=== PATIENT | male | born 1935 | race Hispanic/Latino ===

== ENCOUNTER → 2018-03-09 | Outpatient (CLI) | payer OTHER ==
[~2018-03-09] MED LIST: AEC81 PO; BIMA12.5OS OU; CETI10TA57 PO; COLC0.6T70 PO; DILT240C3 PO; DORZ10DR9 OU; INSU100V12 SQ; LINA5TAB PO; LOVA20TA3 PO; OLME1TAB40 PO; PANT40TA25 PO; PREG75 PO
== END | disposition home or self-care (01) ==
LOC: OIH 16:22
PROVIDERS: ATTEND Family Medicine
DX: M19.012 Primary osteoarthritis, left shoulder (principal); M75.32 Calcific tendinitis of left shoulder
CPT/HCPCS: 73030

== ENCOUNTER 2020-05-13 15:19 | Inpatient (IN) | payer OTHER ==
[~2020-05-13] VITALS: Ht 180.3 cm; Wt 89.4 kg
[~2020-05-13 15:19] MED LIST changes: -COLC0.6T70 PO; +COLC0.6T73 PO; -DILT240C3 PO; +DILT240C97 PO; +OLME-7 PO; -OLME1TAB40 PO; -PANT40TA25 PO; +PANT40TA54 PO
[2020-05-13 16:06] LABS: BASOPHILS % (AUTO) 0.3 % (0.0-5.0); HEMATOCRIT 26.9 % (42-54); LYMPHOCYTES % (AUTO) 21.9 % (21.0-51.0); MEAN CORPUSCULAR HEMOGLOBIN 30.1 pg (27.0-33.0); MEAN CORPUSCULAR HGB CONC 33.5 g/dL (32.0-36.0); MONOCYTES % (AUTO) 46.5 % (3.0-13.0); NEUTROPHILS % (AUTO) 27.5 % (40.0-77.0); PLATELET COUNT (AUTO) 110 K/uL (130-400); RED BLOOD CELL COUNT(AUTO) 2.99 MIL/uL (4.50-6.20); RED CELL DISTRIBUTION WIDTH 12.8 % (11.0-15.5); WHITE BLOOD COUNT (AUTO) 3.4 K/uL (4.8-10.8)
[2020-05-13 16:15] LABS: INR 1.12 (0.85-1.15); PROTHROMBIN TIME 11.9 SEC (9.6-11.6)
[2020-05-13 16:17] LABS: PARTIAL THROMBOPLASTIN TIME 34.4 SEC (26.3-35.5)
[2020-05-13 16:23] LABS: CREATININE 3.2 mg/dL (0.5-1.5); POTASSIUM 5.5 mmol/L (3.5-5.1)
[2020-05-13 16:37] LABS: ALBUMIN 2.7 g/dL (3.5-5.0); BILIRUBIN,TOTAL 0.4 mg/dL (0.2-1.0); TOTAL PROTEIN, SERUM 5.7 g/dL (6.0-8.3)
[2020-05-13 16:56] LABS: CRP QUANTITATIVE 51.7 mg/L (0.00-9.0)
[2020-05-13] MEDS ORDERED: 0.9%NACL 1000ML 1,000 ML IV ONE (17:06)
[2020-05-13] MEDS ORDERED: ZOSYN 3.375GM+NS 50ML 50 ML IV ONE (17:19)
[2020-05-13 17:24] LABS: ABG BASE EXCESS -5.5 mmol/L (-2.0-3.0); ABG HCO3 17.4 mmol/L (21.0-28.0); ABG PCO2 28 mmHg (35-48)
[2020-05-13] MEDS ORDERED: ENOXAPARIN SODIUM 40 MG/0.4 ML SYRINGE SQ ONE (17:36)
[2020-05-13] MEDS ORDERED: ENOXAPARIN SODIUM 100 MG/1 ML SQ ONE (17:39)
[2020-05-13] MEDS: CEFTRIAXONE 1G VIAL IVP SCH (18:45)
[2020-05-13] MEDS ORDERED: LACTATED RINGERS 1000ML 1,000 ML IV SCH (18:45)
[2020-05-13] MEDS: AZITHROMYCIN 500MG+NS 250ML 250 ML IV SCH (18:45)
[2020-05-13] MEDS ORDERED: DiphenhydrAMINE HCL 50 MG/ML VIAL IV PRN (18:45)
[2020-05-13] MEDS ORDERED: ACETAMINOPHEN 650 MG SUPPOSITORY RC PRN (18:45)
[2020-05-13] MEDS ORDERED: ERGOCALCIFEROL (VITAMIN D2) 50,000 UNIT CAPSULE PO ONE (18:45)
[2020-05-13] MEDS ORDERED: DEXAMETHASONE SOD PHOSPHATE 4 MG/ML 1ML VIAL IVP SCH (18:45)
[2020-05-13] MEDS ORDERED: NOREPINEPHRIN 4MG/NS 250ML 250 ML IV ONE (18:51)
[2020-05-13] MEDS ORDERED: ERGOCALCIFEROL (VITAMIN D2) 50,000 UNIT CAPSULE ONE (21:03)
[2020-05-14 05:45] LABS: BASOPHILS % (AUTO) 0.5 % (0.0-5.0); HEMATOCRIT 26.9 % (42-54); LYMPHOCYTES % (AUTO) 27.7 % (21.0-51.0); MEAN CORPUSCULAR HEMOGLOBIN 29.7 pg (27.0-33.0); MEAN CORPUSCULAR HGB CONC 32.7 g/dL (32.0-36.0); MEAN CORPUSCULAR VOLUME 90.9 fL (79-99); MONOCYTES % (AUTO) 14.1 % (3.0-13.0); NEUTROPHILS % (AUTO) 47.4 % (40.0-77.0); PLATELET COUNT (AUTO) 119 K/uL (130-400); RED BLOOD CELL COUNT(AUTO) 2.96 MIL/uL (4.50-6.20); WHITE BLOOD COUNT (AUTO) 1.8 K/uL (4.8-10.8)
[2020-05-14 06:24] LABS: ALBUMIN 2.6 g/dL (3.5-5.0); BILIRUBIN,TOTAL 0.5 mg/dL (0.2-1.0); CRP QUANTITATIVE 77.9 mg/L (0.00-9.0); POTASSIUM 4.6 mmol/L (3.5-5.1); TOTAL PROTEIN, SERUM 6.3 g/dL (6.0-8.3)
[2020-05-14] MEDS: CEFTRIAXONE 1G VIAL IVP SCH ×2 (06:45→18:45)
[2020-05-14] MEDS ORDERED: ASCORBIC ACID 500 MG TAB ONE (08:22)
[2020-05-14] MEDS ORDERED: DEXAMETHASONE SOD PHOSPHATE 10MG/ML 1ML VIAL ONE (08:22)
[2020-05-14] MEDS ORDERED: AZITHROMYCIN 500MG+NS 250ML 250 ML IV ONE (08:23)
[2020-05-14] MEDS ORDERED: ZINC SULFATE 220 CAPSULE ONE ×2 (08:23→08:43)
[2020-05-14] MEDS ORDERED: ENOXAPARIN SODIUM 40 MG/0.4 ML SYRINGE SQ ONE (08:23)
[2020-05-14] MEDS ORDERED: CEFTRIAXONE 1G VIAL ONE (08:23)
[2020-05-14] MEDS: ASCORBIC ACID 500 MG TAB PO SCH (09:00)
[2020-05-14] MEDS ORDERED: ENOXAPARIN SODIUM 40 MG/0.4 ML SYRINGE SQ SCH (09:00)
[2020-05-14] MEDS: ZINC SULFATE 220 CAPSULE PO SCH (09:00)
[2020-05-14] MEDS: FAMOTIDINE 20MG VIAL IV SCH (09:00)
[2020-05-14] MEDS: 0.9%NACL 1000ML 1,000 ML IV SCH (15:15)
[2020-05-14 15:56] LABS: ABG BASE EXCESS -7.9 mmol/L (-2.0-3.0); ABG HCO3 15.6 mmol/L (21.0-28.0); ABG OXYGEN SATURATION 98.2 % (95.0-99.0); ABG PCO2 28 mmHg (35-48)
[2020-05-14 16:56] LABS: APPEARANCE,URINE Clear (CLEAR); BILIRUBIN,URINE Negative (NEGATIVE); COLOR,URINE Yellow (YELLOW); GLUCOSE, URINE (UA) Negative (NEGATIVE); KETONES,URINE Negative (NEGATIVE); LEUKOCYTE ESTERASE ,URINE Negative (NEGATIVE); NITRATE,URINE Negative (NEGATIVE); OCCULT BLOOD,URINE Moderate (NEGATIVE); PROTEIN,URINE POS 1+ mg/dL (NEGATIVE); UROBILINOGEN,URINE 0.2 mg/dL (0.2-1.0)
[2020-05-14 17:16] LABS: BACTERIA,URINE Few /HPF (None Seen); MUCUS,URINE Rare LPF (None Seen); SQUAMOUS EPITHELIAL CELL,UR Rare /HPF (0-2); WBC,URINE 0-1 /HPF (0-1)
[2020-05-14 17:17] LABS: COARSE GRANULAR CASTS,URINE 0-2 /LPF (None Seen)
[2020-05-14] MEDS: AZITHROMYCIN 500MG+NS 250ML 250 ML IV SCH (18:45)
[2020-05-14] MEDS ORDERED: ASPI-1146 PO (20:36)
[2020-05-15] MEDS ORDERED: ACETAMINOPHEN 325 MG TAB ONE (00:19)
[2020-05-15 04:31] LABS: ABG BASE EXCESS -6.5 mmol/L (-2.0-3.0); ABG HCO3 17.6 mmol/L (21.0-28.0); ABG OXYGEN SATURATION 97.1 % (95.0-99.0); ABG PCO2 31 mmHg (35-48)
[2020-05-15 05:43] LABS: BASOPHILS % (AUTO) 0.5 % (0.0-5.0); HEMATOCRIT 26.9 % (42-54); LYMPHOCYTES % (AUTO) 10.8 % (21.0-51.0); MEAN CORPUSCULAR HEMOGLOBIN 30.3 pg (27.0-33.0); MEAN CORPUSCULAR HGB CONC 33.8 g/dL (32.0-36.0); MEAN CORPUSCULAR VOLUME 89.7 fL (79-99); MONOCYTES % (AUTO) 16.7 % (3.0-13.0); NEUTROPHILS % (AUTO) 64.4 % (40.0-77.0); PLATELET COUNT (AUTO) 134 K/uL (130-400); RED CELL DISTRIBUTION WIDTH 12.9 % (11.0-15.5); WHITE BLOOD COUNT (AUTO) 6.2 K/uL (4.8-10.8)
[2020-05-15 06:31] LABS: ALBUMIN 2.5 g/dL (3.5-5.0); BILIRUBIN,TOTAL 0.3 mg/dL (0.2-1.0); CREATININE 2.4 mg/dL (0.5-1.5); CRP QUANTITATIVE 50.9 mg/L (0.00-9.0); MAGNESIUM 2.7 mg/dL (1.80-2.40); PHOSPHORUS 4.7 mg/dL (2.5-4.9); POTASSIUM 4.4 mmol/L (3.5-5.1); TOTAL PROTEIN, SERUM 6.1 g/dL (6.0-8.3)
[2020-05-15 06:34] LABS: % IRON SATURATION 7.2 % (30-44)
[2020-05-15] MEDS: CEFTRIAXONE 1G VIAL IVP SCH ×2 (06:45→18:45)
[2020-05-15] MEDS ORDERED: ZINC SULFATE 220 CAPSULE ONE (07:03)
[2020-05-15] MEDS ORDERED: ASCORBIC ACID 500 MG TAB ONE (07:03)
[2020-05-15] MEDS ORDERED: CEFTRIAXONE 1G VIAL ONE (07:03)
[2020-05-15] MEDS ORDERED: ENOXAPARIN SODIUM 40 MG/0.4 ML SYRINGE SQ ONE (07:03)
[2020-05-15] MEDS ORDERED: FAMOTIDINE 20MG VIAL IV ONE (07:04)
[2020-05-15] MEDS: ZINC SULFATE 220 CAPSULE PO SCH (09:00)
[2020-05-15] MEDS: FAMOTIDINE 20MG VIAL IV SCH (09:00)
[2020-05-15] MEDS: ENOXAPARIN SODIUM 30 MG/0.3 ML SQ SCH (09:00)
[2020-05-15] MEDS: ASCORBIC ACID 500 MG TAB PO SCH (09:00)
[2020-05-15 09:37] LABS: TROPONIN I 0.12 ng/mL (0.00-0.06)
[2020-05-15] MEDS: 0.9%NACL 1000ML 1,000 ML IV SCH (11:15)
[2020-05-15] MEDS ORDERED: IRON SUCROSE COMPLEX 100 MG in 0.9%NACL 50ML 50 ML IV SCH (12:15)
[2020-05-15] MEDS ORDERED: EPOETIN ALFA-EPBX (ESRD) 10,000 UNIT/ML VIAL SQ SCH (12:15)
[2020-05-15] MEDS: IRON SUCROSE COMPLEX 100 MG in 0.9%NACL 50ML 50 ML IV SCH (12:30)
[2020-05-15] MEDS ORDERED: COMPOUND IV MISC 1 EACH IVSOLN MISC PRN (12:30)
[2020-05-15] MEDS ORDERED: DEXAMETHASONE 4 MG TAB PO SCH (18:15)
[2020-05-15] MEDS ORDERED: AZITHROMYCIN 500MG+NS 250ML 250 ML IV ONE (18:25)
[2020-05-15] MEDS ORDERED: DEXAMETHASONE 4 MG TAB ONE (18:25)
[2020-05-15] MEDS: AZITHROMYCIN 500MG+NS 250ML 250 ML IV SCH (18:45)
[2020-05-15 19:00] LABS: BASOPHILS % (AUTO) 0.3 % (0.0-5.0); HEMATOCRIT 27.2 % (42-54); LYMPHOCYTES % (AUTO) 4.9 % (21.0-51.0); MEAN CORPUSCULAR HEMOGLOBIN 30.5 pg (27.0-33.0); MEAN CORPUSCULAR HGB CONC 33.5 g/dL (32.0-36.0); MEAN CORPUSCULAR VOLUME 91.3 fL (79-99); MONOCYTES % (AUTO) 20.6 % (3.0-13.0); NEUTROPHILS % (AUTO) 67.3 % (40.0-77.0); NUCLEATED RED BLOOD CELLS 0.3 % (0.0-0.19); PLATELET COUNT (AUTO) 195 K/uL (130-400); RED BLOOD CELL COUNT(AUTO) 2.98 MIL/uL (4.50-6.20); RED CELL DISTRIBUTION WIDTH 13.2 % (11.0-15.5); WHITE BLOOD COUNT (AUTO) 11.5 K/uL (4.8-10.8)
[2020-05-15 21:30] VITALS: BP 122/60
[2020-05-16] VITALS (7 sets, daily range): BP systolic 107–141; BP diastolic 57–80
[2020-05-16 05:22] LABS: BASOPHILS % (AUTO) 0.3 % (0.0-5.0); HEMATOCRIT 26.4 % (42-54); LYMPHOCYTES % (AUTO) 5.1 % (21.0-51.0); MEAN CORPUSCULAR HEMOGLOBIN 29.2 pg (27.0-33.0); MEAN CORPUSCULAR HGB CONC 32.6 g/dL (32.0-36.0); MEAN CORPUSCULAR VOLUME 89.5 fL (79-99); MONOCYTES % (AUTO) 12.6 % (3.0-13.0); NEUTROPHILS % (AUTO) 72.5 % (40.0-77.0); NUCLEATED RED BLOOD CELLS 0.4 % (0.0-0.19); PLATELET COUNT (AUTO) 155 K/uL (130-400); RED BLOOD CELL COUNT(AUTO) 2.95 MIL/uL (4.50-6.20); RED CELL DISTRIBUTION WIDTH 13.2 % (11.0-15.5); WHITE BLOOD COUNT (AUTO) 11.9 K/uL (4.8-10.8)
[2020-05-16] MEDS: CEFTRIAXONE 1G VIAL IVP SCH ×2 (05:47→21:10)
[2020-05-16 05:49] LABS: ALBUMIN 2.6 g/dL (3.5-5.0); BILIRUBIN,TOTAL 0.3 mg/dL (0.2-1.0); CREATININE 2.2 mg/dL (0.5-1.5); CRP QUANTITATIVE 36.6 mg/L (0.00-9.0); POTASSIUM 4.8 mmol/L (3.5-5.1)
[2020-05-16] MEDS: 0.9%NACL 1000ML 1,000 ML IV SCH (10:07)
[2020-05-16] MEDS: ZINC SULFATE 220 CAPSULE PO SCH (10:07)
[2020-05-16] MEDS: FAMOTIDINE 20MG VIAL IV SCH (10:07)
[2020-05-16] MEDS: ASCORBIC ACID 500 MG TAB PO SCH (10:08)
[2020-05-16] MEDS: ENOXAPARIN SODIUM 30 MG/0.3 ML SQ SCH (10:10)
[2020-05-16] MEDS: IRON SUCROSE COMPLEX 100 MG in 0.9%NACL 50ML 50 ML IV SCH (10:11)
[2020-05-16] MEDS: AZITHROMYCIN 500MG+NS 250ML 250 ML IV SCH (21:10)
[2020-05-17 02:29] LABS: HEMATOCRIT 27.9 % (42-54); MEAN CORPUSCULAR HGB CONC 33.3 g/dL (32.0-36.0); NUCLEATED RED BLOOD CELLS 0.9 % (0.0-0.19); RED BLOOD CELL COUNT(AUTO) 3.1 MIL/uL (4.50-6.20); RED CELL DISTRIBUTION WIDTH 13.5 % (11.0-15.5)
[2020-05-17 02:40] LABS: CREATININE 2.2 mg/dL (0.5-1.5); POTASSIUM 4.9 mmol/L (3.5-5.1)
[2020-05-17] MEDS: 0.9%NACL 1000ML 1,000 ML IV SCH ×2 (03:03→23:15)
[2020-05-17 03:39] VITALS: BP 123/72
[2020-05-17] MEDS ORDERED: MEROPENEM 1 GM VIAL ONE (03:42)
[2020-05-17] MEDS: MEROPENEM 1 GM VIAL IVP SCH ×2 (05:51→17:53)
[2020-05-17] MEDS: ENOXAPARIN SODIUM 30 MG/0.3 ML SQ SCH (08:25)
[2020-05-17] MEDS: ZINC SULFATE 220 CAPSULE PO SCH (08:25)
[2020-05-17] MEDS: DILTIAZEM 120MG SR CAP PO SCH (08:25)
[2020-05-17] MEDS: ASCORBIC ACID 500 MG TAB PO SCH (08:26)
[2020-05-17] MEDS: FAMOTIDINE 20MG VIAL IV SCH (08:26)
[2020-05-17 08:56] VITALS: BP 123/67
[2020-05-17] MEDS: IRON SUCROSE COMPLEX 100 MG in 0.9%NACL 50ML 50 ML IV SCH (09:00)
[2020-05-17 12:00] VITALS: BP 107/60
[2020-05-17] MEDS ORDERED: VANCOMYCIN PROTOCOL PER PHARMACY IV SCH (14:30)
[2020-05-17] MEDS ORDERED: VANCOMYCIN 1G 1.75 GM in 0.9% NACL 250ML 250 ML IV ONE (14:30)
[2020-05-17] MEDS ORDERED: COMPOUND IV REFRIGERATED 1 EACH IVSOLN MISC PRN (14:30)
[2020-05-17] MEDS: DEXAMETHASONE 4 MG TAB PO SCH (14:54)
[2020-05-17 16:00] VITALS: BP 122/73
[2020-05-17] MEDS: AZITHROMYCIN 500MG+NS 250ML 250 ML IV SCH (17:52)
[2020-05-17 20:00] VITALS: BP 149/62
[2020-05-17] MEDS: SODIUM BICARBONATE 650 MG TAB PO SCH (21:00)
[2020-05-17] MEDS: ENOXAPARIN SODIUM 40 MG/0.4 ML SYRINGE SQ SCH (23:11)
[2020-05-18] VITALS (7 sets, daily range): BP systolic 115–138; BP diastolic 53–82
[2020-05-18 04:49] LABS: HEMATOCRIT 29.2 % (42-54); MEAN CORPUSCULAR HEMOGLOBIN 29.6 pg (27.0-33.0); MEAN CORPUSCULAR HGB CONC 31.8 g/dL (32.0-36.0); NUCLEATED RED BLOOD CELLS 1.4 % (0.0-0.19); RED BLOOD CELL COUNT(AUTO) 3.14 MIL/uL (4.50-6.20); RED CELL DISTRIBUTION WIDTH 14.1 % (11.0-15.5); WHITE BLOOD COUNT (AUTO) 16.7 K/uL (4.8-10.8)
[2020-05-18 05:03] LABS: CREATININE 2.8 mg/dL (0.5-1.5); POTASSIUM 5.1 mmol/L (3.5-5.1)
[2020-05-18] MEDS: MEROPENEM 1 GM VIAL IVP SCH ×2 (06:03→18:32)
[2020-05-18] MEDS: 0.9%NACL 1000ML 1,000 ML IV SCH ×2 (06:03→13:27)
[2020-05-18 06:41] LABS: ABG BASE EXCESS -9.1 mmol/L (-2.0-3.0); ABG HCO3 13.6 mmol/L (21.0-28.0); ABG OXYGEN SATURATION 96.7 % (95.0-99.0); ABG PCO2 23 mmHg (35-48)
[2020-05-18] MEDS ORDERED: PHARMACY COMMUNICATION MISC SCH (07:00)
[2020-05-18] MEDS ORDERED: SODIUM BICARB 50MEQ 50ML VIAL IV SCH (07:15)
[2020-05-18] MEDS: DILTIAZEM 120MG SR CAP PO SCH ×2 (07:30→16:31)
[2020-05-18] MEDS: ZINC SULFATE 220 CAPSULE PO SCH (09:00)
[2020-05-18] MEDS: SODIUM BICARBONATE 650 MG TAB PO SCH ×2 (09:00→22:01)
[2020-05-18] MEDS ORDERED: VANCOMYCIN 750MG + NS 250 ML IV SCH ×2 (09:00)
[2020-05-18] MEDS: ASCORBIC ACID 500 MG TAB PO SCH (09:00)
[2020-05-18 09:53] LABS: ABG BASE EXCESS -8.7 mmol/L (-2.0-3.0); ABG HCO3 14.3 mmol/L (21.0-28.0); ABG OXYGEN SATURATION 93.5 % (95.0-99.0); ABG PCO2 25 mmHg (35-48)
[2020-05-18] MEDS: FAMOTIDINE 20MG VIAL IV SCH (10:09)
[2020-05-18] MEDS: ENOXAPARIN SODIUM 40 MG/0.4 ML SYRINGE SQ SCH ×2 (10:10→22:06)
[2020-05-18] MEDS: IRON SUCROSE COMPLEX 100 MG in 0.9%NACL 50ML 50 ML IV SCH (10:22)
[2020-05-18] MEDS ORDERED: VANCOMYCIN 1G 1.75 GM in 0.9% NACL 250ML 250 ML IV SCH (10:30)
[2020-05-18] MEDS ORDERED: ZYVOX 600 MG TAB PO SCH (12:15)
[2020-05-18] MEDS ORDERED: LINEZOLID 600 MG/ISO-OSM 300 ML IV SCH (13:30)
[2020-05-18] MEDS: LINEZOLID 600 MG/ISO-OSM 300 ML IV SCH (14:49)
[2020-05-18] MEDS: AZITHROMYCIN 500MG+NS 250ML 250 ML IV SCH (18:32)
[2020-05-18] MEDS: DEXAMETHASONE 4 MG TAB PO SCH (22:16)
[2020-05-19] MEDS: LINEZOLID 600 MG/ISO-OSM 300 ML IV SCH (00:53)
[2020-05-19] MEDS: 0.9%NACL 1000ML 1,000 ML IV SCH (01:45)
[2020-05-19 03:42] VITALS: BP 118/65
[2020-05-19 04:26] LABS: ABG BASE EXCESS -6.3 mmol/L (-2.0-3.0); ABG HCO3 17.7 mmol/L (21.0-28.0); ABG OXYGEN SATURATION 93.1 % (95.0-99.0); ABG PCO2 31 mmHg (35-48)
[2020-05-19 04:53] LABS: BASOPHILS % (AUTO) 0.4 % (0.0-5.0); HEMATOCRIT 29.3 % (42-54); MEAN CORPUSCULAR HEMOGLOBIN 29.6 pg (27.0-33.0); MEAN CORPUSCULAR HGB CONC 31.7 g/dL (32.0-36.0); MEAN CORPUSCULAR VOLUME 93.3 fL (79-99); MONOCYTES % (AUTO) 10.5 % (3.0-13.0); NEUTROPHILS % (AUTO) 78.8 % (40.0-77.0); NUCLEATED RED BLOOD CELLS 1.2 % (0.0-0.19); PLATELET COUNT (AUTO) 168 K/uL (130-400); RED BLOOD CELL COUNT(AUTO) 3.14 MIL/uL (4.50-6.20); RED CELL DISTRIBUTION WIDTH 14.5 % (11.0-15.5); WHITE BLOOD COUNT (AUTO) 13.7 K/uL (4.8-10.8)
[2020-05-19] MEDS: MEROPENEM 1 GM VIAL IVP SCH (05:28)
[2020-05-19 05:51] LABS: MAGNESIUM 2.8 mg/dL (1.80-2.40)
[2020-05-19 06:05] LABS: CREATININE 2.5 mg/dL (0.5-1.5); POTASSIUM 4.1 mmol/L (3.5-5.1)
[2020-05-19 07:50] VITALS: BP 120/52
[2020-05-19] MEDS ORDERED: VANCOMYCIN 750MG + NS 250 ML IV SCH ×2 (09:00)
[2020-05-19] MEDS: FAMOTIDINE 20MG VIAL IV SCH (09:14)
[2020-05-19] MEDS: ZINC SULFATE 220 CAPSULE PO SCH (09:14)
[2020-05-19] MEDS: SODIUM BICARBONATE 650 MG TAB PO SCH ×2 (09:14→21:00)
[2020-05-19] MEDS: ASCORBIC ACID 500 MG TAB PO SCH (09:14)
[2020-05-19] MEDS: ENOXAPARIN SODIUM 40 MG/0.4 ML SYRINGE SQ SCH ×2 (09:15→22:26)
[2020-05-19] MEDS: DEXTROSE 5%-WATER 1,000 ML IV SCH ×2 (09:19→22:20)
[2020-05-19 11:25] VITALS: BP 100/69
[2020-05-19] MEDS: IRON SUCROSE COMPLEX 100 MG in 0.9%NACL 50ML 50 ML IV SCH (12:35)
[2020-05-19] MEDS: DEXAMETHASONE 4 MG TAB PO SCH (14:30)
[2020-05-19 15:17] VITALS: BP 91/66
[2020-05-19 16:57] LABS: ABG BASE EXCESS -6.4 mmol/L (-2.0-3.0); ABG HCO3 17.8 mmol/L (21.0-28.0); ABG OXYGEN SATURATION 98.1 % (95.0-99.0); ABG PCO2 32 mmHg (35-48)
[2020-05-19] MEDS: AZITHROMYCIN 500MG+NS 250ML 250 ML IV SCH (18:45)
[2020-05-19 19:00] VITALS: BP 120/66
[2020-05-19 23:00] VITALS: BP 120/65
[2020-05-20] MEDS: LINEZOLID 600 MG/ISO-OSM 300 ML IV SCH ×2 (01:30→16:46)
[2020-05-20 03:00] VITALS: BP 120/60
[2020-05-20 05:15] LABS: BASOPHILS % (AUTO) 0.4 % (0.0-5.0); HEMATOCRIT 27.6 % (42-54); LYMPHOCYTES % (AUTO) 3.1 % (21.0-51.0); MEAN CORPUSCULAR HEMOGLOBIN 29.4 pg (27.0-33.0); MEAN CORPUSCULAR HGB CONC 30.8 g/dL (32.0-36.0); MEAN CORPUSCULAR VOLUME 95.5 fL (79-99); NEUTROPHILS % (AUTO) 68.3 % (40.0-77.0); NUCLEATED RED BLOOD CELLS 1.3 % (0.0-0.19); PLATELET COUNT (AUTO) 164 K/uL (130-400); RED BLOOD CELL COUNT(AUTO) 2.89 MIL/uL (4.50-6.20); RED CELL DISTRIBUTION WIDTH 14.9 % (11.0-15.5); WHITE BLOOD COUNT (AUTO) 14.5 K/uL (4.8-10.8)
[2020-05-20 05:35] LABS: CREATININE 2.8 mg/dL (0.5-1.5); POTASSIUM 4.3 mmol/L (3.5-5.1)
[2020-05-20] MEDS: MEROPENEM 1 GM VIAL IVP SCH ×2 (06:00→18:14)
[2020-05-20] MEDS: DILTIAZEM 120MG SR CAP PO SCH (06:10)
[2020-05-20 07:39] LABS: ABG BASE EXCESS -5.7 mmol/L (-2.0-3.0); ABG HCO3 18.7 mmol/L (21.0-28.0); ABG OXYGEN SATURATION 96.8 % (95.0-99.0); ABG PCO2 34 mmHg (35-48)
[2020-05-20 08:00] VITALS: BP 127/78
[2020-05-20] MEDS: ASCORBIC ACID 500 MG TAB PO SCH (09:00)
[2020-05-20] MEDS: SODIUM BICARBONATE 650 MG TAB PO SCH (09:00)
[2020-05-20] MEDS: ZINC SULFATE 220 CAPSULE PO SCH (09:00)
[2020-05-20 12:00] VITALS: BP 122/70
[2020-05-20] MEDS: DEXAMETHASONE 4 MG TAB PO SCH (14:30)
[2020-05-20 14:45] LABS: INR 1.31 (0.85-1.15); PROTHROMBIN TIME 13.7 SEC (9.6-11.6)
[2020-05-20 16:00] VITALS: BP 106/72
[2020-05-20] MEDS: ENOXAPARIN SODIUM 40 MG/0.4 ML SYRINGE SQ SCH (16:45)
[2020-05-20] MEDS ORDERED: CLINIMIX-E4.25%AA/D5+LYT2000ML 2,000 ML IV SCH (17:00)
[2020-05-20] MEDS: IRON SUCROSE COMPLEX 100 MG in 0.9%NACL 50ML 50 ML IV SCH (18:14)
[2020-05-20 20:12] VITALS: BP 86/51
[2020-05-21] VITALS (8 sets, daily range): BP systolic 68–121; BP diastolic 40–64
[2020-05-21] MEDS: ENOXAPARIN SODIUM 40 MG/0.4 ML SYRINGE SQ SCH ×3 (00:56→21:11)
[2020-05-21] MEDS: FAMOTIDINE 20MG VIAL IV SCH ×2 (00:56→10:06)
[2020-05-21] MEDS: LINEZOLID 600 MG/ISO-OSM 300 ML IV SCH ×2 (05:15→15:45)
[2020-05-21 05:45] LABS: HEMATOCRIT 27.4 % (42-54); MEAN CORPUSCULAR HEMOGLOBIN 29.5 pg (27.0-33.0); MEAN CORPUSCULAR HGB CONC 29.6 g/dL (32.0-36.0); MEAN CORPUSCULAR VOLUME 99.6 fL (79-99); NUCLEATED RED BLOOD CELLS 1.6 % (0.0-0.19); RED BLOOD CELL COUNT(AUTO) 2.75 MIL/uL (4.50-6.20); RED CELL DISTRIBUTION WIDTH 15.5 % (11.0-15.5); WHITE BLOOD COUNT (AUTO) 15.5 K/uL (4.8-10.8)
[2020-05-21 06:04] LABS: BILIRUBIN,TOTAL 0.5 mg/dL (0.2-1.0); POTASSIUM 5.2 mmol/L (3.5-5.1); TOTAL PROTEIN, SERUM 5.2 g/dL (6.0-8.3)
[2020-05-21] MEDS: MEROPENEM 1 GM VIAL IVP SCH ×2 (06:42→16:57)
[2020-05-21] MEDS: INSULIN HUMULIN R 100 UNIT/ML 3ML SQ SCH ×3 (06:44→16:58)
[2020-05-21] MEDS: DILTIAZEM 120MG SR CAP PO SCH (07:30)
[2020-05-21] MEDS ORDERED: CLINIMIX IV NR (09:00)
[2020-05-21] MEDS ORDERED: [UNRECOGNIZED DRUG - OTHER] IV NR (09:00)
[2020-05-21] MEDS: ASCORBIC ACID 500 MG TAB PO SCH (09:00)
[2020-05-21] MEDS: ZINC SULFATE 220 CAPSULE PO SCH (09:00)
[2020-05-21] MEDS: SODIUM BICARBONATE 650 MG TAB PO SCH (09:00)
[2020-05-21] MEDS ORDERED: FAT EMULSIONS 20% 250ML 250 ML IV SCH (10:00)
[2020-05-21] MEDS: IRON SUCROSE COMPLEX 100 MG in 0.9%NACL 50ML 50 ML IV SCH (10:06)
[2020-05-21] MEDS ORDERED: DEXAMETHASONE SOD PHOSPHATE 4 MG/ML 1ML VIAL IVP SCH (16:15)
[2020-05-22] MEDS: LINEZOLID 600 MG/ISO-OSM 300 ML IV SCH (01:01)
[2020-05-22] MEDS: INSULIN HUMULIN R 100 UNIT/ML 3ML SQ SCH (01:03)
[2020-05-22 03:10] VITALS: BP 78/52
[2020-05-22] MEDS ORDERED: INSULIN GLARGINE 100 UNITS/ML 10 ML VIAL SQ ONE (03:45)
[2020-05-22] MEDS ORDERED: 0.9% NACL 500ML IV.SOLN 500 ML IV ONE (04:13)
[2020-05-22] MEDS ORDERED: INSULIN HUMULIN R 100 UNIT/ML 3ML SQ SCH ×2 (06:00)
== END 2020-05-22 05:27 | disposition expired | DRG 177 ==
LOC: EDH 15:19 → EDHIP 18:42 → 2AH 05-15 21:24
PROVIDERS: ADMIT Internal Medicine; ATTEND Internal Medicine
PROC: XW13325 Transfusion of Convalescent Plasma (Nonautologous) into Peripheral Vein, Percutaneous Approach, New Technology Group 5 (ICD-10-PCS; principal; 2020-05-13)
PROC: 5A09357 Assistance with Respiratory Ventilation, Less than 24 Consecutive Hours, Continuous Positive Airway Pressure (ICD-10-PCS; 2020-05-19)
PROC: 5A09457 Assistance with Respiratory Ventilation, 24-96 Consecutive Hours, Continuous Positive Airway Pressure (ICD-10-PCS; 2020-05-20)
PROC: 05HY33Z Insertion of Infusion Device into Upper Vein, Percutaneous Approach (ICD-10-PCS; 2020-05-20)
PROC: B54NZZA Ultrasonography of Left Upper Extremity Veins, Guidance (ICD-10-PCS; 2020-05-20)
DX: U07.1 COVID-19 (principal); J96.01 Acute respiratory failure with hypoxia; G92 Toxic encephalopathy; J12.82 Pneumonia due to coronavirus disease 2019; N17.9 Acute kidney failure, unspecified; L97.929 Non-pressure chronic ulcer of unspecified part of left lower leg with unspecified severity; L03.116 Cellulitis of left lower limb; E87.0 Hyperosmolality and hypernatremia; E44.1 Mild protein-calorie malnutrition; Z66 Do not resuscitate; N18.9 Chronic kidney disease, unspecified; I12.9 Hypertensive chronic kidney disease with stage 1 through stage 4 chronic kidney disease, or unspecified chronic kidney disease; L89.626 Pressure-induced deep tissue damage of left heel; E78.5 Hyperlipidemia, unspecified; E11.22 Type 2 diabetes mellitus with diabetic chronic kidney disease; R62.7 Adult failure to thrive; R13.10 Dysphagia, unspecified; E86.9 Volume depletion, unspecified; E11.51 Type 2 diabetes mellitus with diabetic peripheral angiopathy without gangrene; E66.9 Obesity, unspecified; R53.81 Other malaise; R74.8 Abnormal levels of other serum enzymes; D64.9 Anemia, unspecified; I25.10 Atherosclerotic heart disease of native coronary artery without angina pectoris; Z68.27 Body mass index [BMI] 27.0-27.9, adult; Z95.1 Presence of aortocoronary bypass graft; Z74.01 Bed confinement status; Z90.49 Acquired absence of other specified parts of digestive tract; Z79.84 Long term (current) use of oral hypoglycemic drugs
CPT/HCPCS: 36415; 36600; 70450; 71045; 71250; 73560; 76705; 76770; 80048; 80053; 81001; 82550; 82728; 82803; 82948; 83540; 83550; 83605; 83615; 83735; 83874; 84100; 84145; 84484; 85025; 85027; 85378; 85610; 85651; 85730; 86140; 86850; 86900; 86901; 86927; 87040; 87088; 87426; 92610; 93005; 93306; 93356; 93970; 94660; 97039; C1894; G0378; J0456; J0696; J1100; J1650; J1756; J1815; J2020; J2185; J2543; J3370; J3490; J7030; J7040; J7050; J8540